=== PATIENT | female | born 1995 | race American Indian/Alaskan Native ===

== ENCOUNTER 2018-08-22 09:02 | Emergency (ER) | payer SELFPAY ==
[2018-08-22 09:37] VITALS: BP 111/75
--- NOTE | 2018-08-22 10:31 | Emergency Department Report ---
HPI - General Chief Complaint: Dental/Oral Time Seen by Provider: 08/22/18 10:21 - HPI HPI: 23-year-old female presents to the emergency department with a complaint of some pain to the upper back jaw and teeth for the past 3-4 days. The patient thinks it could be related to a was due to. She feels like her face is slightly swollen. No fever. No difficulty with swallowing or any respiratory complaints. She denies any past medical history. She has not taken anything for her symptoms prior to presentation. No primary care physician or dentist. ED Past Medical Hx - Past Medical History Previous Medical History?: No Hx Psychiatric Treatment: Yes (bi-polar) - Surgical History Past Surgical History?: No - Social History Smoking Status: Current Some Day Smoker Substance Use Type: None - Medications Home Medications: Home Medications Medication Instructions Recorded Confirmed Last Taken Type Acyclovir [Zovirax Tab] 400 mg PO Q8H #30 tab 05/26/15 Unknown Rx Penicillin Vk [Veetids TAB] 250 mg PO QID #28 tablet 08/22/18 Unknown Rx ED Review of Systems ROS: Stated complaint: TOOTH,JAW PAIN Other details as noted in HPI Comment: All other systems reviewed and negative Constitutional: denies: chills, fever Eyes: denies: eye pain, eye discharge, vision change ENT: dental pain. denies: ear pain, throat pain Respiratory: denies: cough, shortness of breath, wheezing Cardiovascular: denies: chest pain, palpitations Gastrointestinal: denies: abdominal pain, vomiting Genitourinary: denies: dysuria, discharge Musculoskeletal: denies: back pain, arthralgia Skin: denies: rash, change in color Neurological: denies: headache, weakness Physical Exam - Physical Exam Vital Signs: Vital Signs 08/22/18 09:35 Temperature 98.6 F Pulse Rate 65 Respiratory 16 Rate Blood Pressure 111/75 O2 Sat by Pulse 100 Oximetry Physical Exam: GENERAL: The patient is well-developed well-nourished. HENT: Normocephalic. Atraumatic. Patient has moist mucous membranes. Oropharynx is clear without tonsillar hypertrophy, erythema or exudates. There is some reproducible tenderness along the upper left jaw, towards the posterior molars and wisdom teeth, but no obvious visible or palpable abscess. No drooling or trismus. EYES: Extraocular motions are intact. Pupils equal reactive to light bilaterally. NECK: Supple. Trachea is midline. No obvious lymphadenopathy. CHEST/LUNGS: Clear to auscultation. There is no respiratory distress noted. HEART/CARDIOVASCULAR: Regular. There is no tachycardia. There is no murmur. ABDOMEN: There is no abdominal distention. SKIN: Skin is warm and dry. NEURO: The patient is awake, alert, and oriented. The patient is cooperative. The patient has no focal neurologic deficits. The patient has normal speech. MUSCULOSKELETAL: There is no tenderness or deformity. There is no limitation range of motion. There is no evidence of acute injury. ED Course Vital Signs 08/22/18 09:35 Temperature 98.6 F Pulse Rate 65 Respiratory 16 Rate Blood Pressure 111/75 O2 Sat by Pulse 100 Oximetry ED Medical Decision Making - Medical Decision Making Patient presents with a 4 day history of some pain to the upper left jaw/gum line. This could be her wisdom teeth but there is no current visible or palpable abscess or at least nothing that seems to require any incision and drainage at this time. No drooling or trismus. Vital signs stable, being afebrile. Patient was placed on antibiotics and given a referral for dentistry. - Differential Diagnosis [place] tooth, dental abscess, dental caries Critical Care Time: No Critical care attestation.: If time is entered above; I have spent that time in minutes in the direct care of this critically ill patient, excluding procedure time. ED Disposition Clinical Impression: Pain, dental, Jaw pain Disposition: DC-01 TO HOME OR SELFCARE Is pt being admited?: No Condition: Stable Instructions: Toothache (ED) Additional Instructions: Please follow up with a dentist this week. Return to the emergency department with any development of fever, difficulty with swallowing or breathing, worsening of your symptoms or any acute distress. Take the antibiotics as prescribed. Prescriptions: Penicillin Vk [Veetids TAB] 250 mg PO QID #28 tablet Referrals: PRIMARY CARE, [Primary Care Provider] - 3-5 Days [facility] [Outside] - 3-5 Days Forms: Work/School Release Form(ED) Time of Disposition: 10:31
== END 2018-08-22 10:40 | disposition home or self-care (01) ==
LOC: ED 09:02
DX: K08.89 Other specified disorders of teeth and supporting structures (principal); R68.84 Jaw pain; F31.9 Bipolar disorder, unspecified; F17.200 Nicotine dependence, unspecified, uncomplicated; Z79.899 Other long term (current) drug therapy; Z88.2 Allergy status to sulfonamides
CPT/HCPCS: 99281